=== PATIENT | female | born 1980 ===

== ENCOUNTER 2017-07-26 08:29 | Outpatient (CLI) | payer OTHER ==
[~2017-07-26 08:29] MED LIST: [UNRECOGNIZED DRUG - OTHER] PO
== END 2017-07-26 08:45 | disposition home or self-care (01) ==
LOC: RAD 501 08:29 → SONOGRAMA 08:29
DX: D25.9 Leiomyoma of uterus, unspecified (principal)

== ENCOUNTER → 2017-07-26 10:31 | Outpatient (CLI) | payer OTHER | END | disposition home or self-care (01) | LOC: LAB 10:31 | DX: E03.8 Other specified hypothyroidism (principal); N92.6 Irregular menstruation, unspecified ==

== ENCOUNTER 2018-12-22 10:43 | Outpatient (CLI) | payer OTHER | END 2018-12-22 10:52 | disposition home or self-care (01) | LOC: MRI 10:43 | DX: M17.11 Unilateral primary osteoarthritis, right knee (principal); M25.461 Effusion, right knee | CPT/HCPCS: 73721 ==

== ENCOUNTER 2019-01-29 16:00 | Inpatient (IN) | payer OTHER ==
[~2019-01-29] VITALS: Ht 165.1 cm; Wt 77.1 kg
== END 2019-02-05 11:40 | disposition home or self-care (01) | DRG 743 ==
LOC: SURG 02-02 07:15 → O/R 02-03 06:15 → OB/GYN 02-03 06:15 → SURG 02-03 07:00 → OB/GYN 02-03 11:08
PROVIDERS: ADMIT Obstetrics & Gynecology
PROC: 0UT17ZZ Resection of Left Ovary, Via Natural or Artificial Opening (ICD-10-PCS; 2019-02-03)
PROC: 0UT67ZZ Resection of Left Fallopian Tube, Via Natural or Artificial Opening (ICD-10-PCS; principal; 2019-02-03 07:00)
DX: N92.1 Excessive and frequent menstruation with irregular cycle (principal); D25.1 Intramural leiomyoma of uterus; N83.8 Other noninflammatory disorders of ovary, fallopian tube and broad ligament; D39.12 Neoplasm of uncertain behavior of left ovary

== ENCOUNTER 2022-04-12 13:46 | Emergency (ER) | payer OTHER ==
[~2022-04-12] VITALS: Ht 167.6 cm; Wt 81.6 kg
== END 2022-04-12 22:12 | disposition home or self-care (01) ==
LOC: ER 13:46
DX: M62.838 Other muscle spasm (principal)

== ENCOUNTER 2022-08-15 08:03 | Emergency (ER) | payer OTHER ==
[~2022-08-15] VITALS: Ht 165.1 cm; Wt 86.2 kg
== END 2022-08-15 14:29 | disposition home or self-care (01) ==
LOC: ER 08:03
DX: R10.84 Generalized abdominal pain (principal); K76.0 Fatty (change of) liver, not elsewhere classified

== ENCOUNTER 2024-08-12 09:44 | Outpatient (CLI) | payer OTHER | END 2024-08-12 09:46 | disposition home or self-care (01) | LOC: SONOGRAMA 09:44 | PROVIDERS: ATTEND Internal Medicine Gastroenterology | DX: R10.9 Unspecified abdominal pain (principal) ==

== ENCOUNTER 2024-12-23 10:03 | Outpatient (CLI) | payer OTHER | END 2024-12-23 10:11 | disposition home or self-care (01) | LOC: MAMO-SONO 10:03 | PROVIDERS: ATTEND Internal Medicine | DX: N64.4 Mastodynia (principal); N60.09 Solitary cyst of unspecified breast; Z12.11 Encounter for screening for malignant neoplasm of colon; N60.12 Diffuse cystic mastopathy of left breast; I10 Essential (primary) hypertension; E55.9 Vitamin D deficiency, unspecified; E11.69 Type 2 diabetes mellitus with other specified complication; B96.81 Helicobacter pylori [H. pylori] as the cause of diseases classified elsewhere; N60.11 Diffuse cystic mastopathy of right breast; E03.8 Other specified hypothyroidism ==